=== PATIENT | male | born 1945 | race Caucasian/White ===

== ENCOUNTER → 2017-02-21 | Outpatient (CLI) | payer OTHER, MEDICARE | LOC: EDSTATUS 10:20 → FIMAGING 14:27 | PROVIDERS: ATTEND Family Medicine | DX: M47.896 Other spondylosis, lumbar region (principal) ==

== ENCOUNTER → 2019-02-02 | Outpatient (CLI) | payer OTHER, MEDICARE | LOC: FIMAGING 07:34 | PROVIDERS: ATTEND Family Medicine | DX: R74.0 Nonspecific elevation of levels of transaminase and lactic acid dehydrogenase [LDH] (principal) ==